=== PATIENT | male | born 1995 | race African-American/Black ===

== ENCOUNTER 2016-12-24 23:59 | Emergency (ER) | payer BC ==
--- NOTE | ~2016-12-24 | CR142 ---
[facility] A Service of [facility] RADIOLOGY TEXT RESULTS PATIENT: TIERRA MASON LOCATION: [facility] : [birth year] UNIT #: [id number] AGE: [address]: SEX: M ORDER DR: [id number] [address] [place], [place] [address] [id number] MR#: [id number] Acc #: [id number] NAME: TIERRA MASON : 1995 SEX: M STUDY DATE/TIME: 12/24/2016 22:10 UNIT: [facility] ROOM: STUDY DESCRIPTION: CR Hand Min 3 Views Rt Ordering Physician: Rodrick Reis M.D. MEDICAL IMAGING REPORT This report is preliminary unless electronic signature is present EXAM Right hand series 12/24/2016 INDICATIONS 21-year-old male with history of trauma, pain and swelling of the back pain today. Injured playing basketball. TECHNIQUE 3 views of the right hand. COMPARISON STUDIES No comparisons. FINDINGS The examination is abnormal. There is a stellate, partially comminuted, complete oblique fracture through the midshaft of the third metacarpal. Only minimal displacement is present with minimal apex dorsal angulation of the largest fracture fragment on the lateral view. There is overlying soft tissue swelling. No interarticular extension. No additional fracture. IMPRESSION 1. Minimally displaced and angulated fracture of the midshaft third metacarpal, as described. No interarticular extension. STAT * RESULT Dictated by... Justin Hathaway M.D. THIS IS AN ELECTRONICALLY VERIFIED REPORT [facility] A Service [facility] RADIOLOGY TEXT RESULTS PATIENT: TIERRA MASON LOCATION: [facility] : [birth year] UNIT #: [id number] AGE: [address]: SEX: M ORDER DR: Justin Hathaway M.D. at 12/24/2016 10:56 PM SATHYA/jus TD: 12/24/2016 22:31 JOB #: [id number] MEDICAL IMAGING REPORT Page 1 of 1 COPY
== END 2016-12-25 01:17 | disposition home or self-care (01) ==
LOC: CFTX 23:59
DX: S62.322A Displaced fracture of shaft of third metacarpal bone, right hand, initial encounter for closed fracture (principal); X58.XXXA Exposure to other specified factors, initial encounter; Y93.67 Activity, basketball; Y92.310 Basketball court as the place of occurrence of the external cause
CPT/HCPCS: 29125; 73130; 99283